=== PATIENT | male | born 1955 | race Hispanic/Latino ===

== ENCOUNTER 2024-06-06 18:23 | Emergency (ER) | payer OTHER, SELFPAY ==
[2024-06-06 18:39] VITALS: BP 146/80
--- NOTE | 2024-06-06 19:27 | ED.GENMED ---
History of Present Illness
General
Chief Complaint: Wound Check/Suture Removal
Source: patient
Time Seen by Provider: 06/06/24 19:07
History of Present Illness
History of Present Illness:
69-year-old male presenting the emergency department for evaluation of suture removals from the right frontoparietal scalp. He states that he had the sutures placed at [place] 10 days ago. He states he was not happy with his care there so did not
wish to go back to their emergency department and he was unable to get in touch with his primary care provider to have the sutures removed so decided to come to this emergency department instead.
Past History
Past History
ED Past Medical History: HTN, Hypercholesterolemia and NIDDM
ED Past Surgical History: Orthopedic and Other
Social History
Tobacco: Non-smoker
Alcohol: Occasional
Drug: None
Personal:
Living: with family
Review of Systems
Review of Systems
All Other Systems: ROS reviewed and negative except as documented in HPI and ROS
Phy Exam
Physical Exam
Physical Exam:
GENERAL: Alert , in no apparent distress
EYE: conjunctiva clear
Head: Normocephalic atraumatic
NECK: Supple,
ENT: mmm.
LUNGS: no acute respiratory distress
NEUROLOGICAL: Alert and oriented
SKIN: Warm and dry, curvilinear laceration is somewhat healed with large scab formation at front portion of the healing wound. Small dehiscence of this wound along the anterior portion but no active bleeding
MUSCULOSKELETAL: well perfused.
PSYCH: Normal and appropriate interaction.
Scores
Heart Failure Risk
Heart Failure Risk Score: Not Applicable
Heart Score for Chest Pain Patients
STEMI patient?: Not applicable
Withdrawal Assessment of Alcohol
Withdrawal Assessment Completed?: Not applicable
Course
Vital Signs
Initial and Last Documented VS:
Initial Vital Signs
Temp Pulse Resp BP Pulse Ox
98.4 F 71 16 146/80 98
06/06/24 18:39 06/06/24 18:39 06/06/24 18:39 06/06/24 18:39 06/06/24 18:39
Last Documented Vital Signs
Temp Pulse Resp BP Pulse Ox
98.4 F 66 16 194/92 99
06/06/24 18:39 06/06/24 19:40 06/06/24 19:40 06/06/24 19:40 06/06/24 19:40
MDM/Problems Addressed
MDM/Problems Addressed:
69-year-old male presenting the emergency department for evaluation of suture removals. The wound is slightly dehisced at the anterior portion however given the sutures have been in place for 10 days and there was large scab formation over this I
did remove all sutures. Advised patient on continued wound care. No signs of infection. He is stable for discharge home and outpatient follow-up with primary care provider.
*Pulse Oximetry
Patient hypoxic: no
*Critical Care Note
Total Time (30-74mins, 75-104mins- exclusive of procedures): Not Applicable
ED Attending Note
-
Portions of this chart may have been created with voice recognition software.� Occasional wrong word or��sound alike� substitutions may have occurred due to the inherent limitations of voice recognition software.
Discharge Plan
Departure
Patient Disposition: Home (Routine Discharge)
Date of Disposition: 06/06/24
Time of Disposition: 19:27
Patient with high blood pressure during this ER visit?: Yes
Discharge Problem:
Encounter for removal of sutures
Instructions: Stitches Removal
Referrals:
Isael Post MD [Family Provider] -
Interventions
Interventions:
*Risk Screen - Suicide Last Done: 06/06/24 19:40
*General Assessment Last Done: 06/06/24 19:10
*Neglect/Abuse Screening Last Done: 06/06/24 19:10
ED- Fall Risk Assessment Last Done: 06/06/24 19:10
*ED COVID-19 Vaccine History Last Done: 06/06/24 19:10
*Nursing Disposition Last Done: 06/06/24 19:40
ED-Skin Assessment Last Done: 06/06/24 19:10
Discharge Date and Time
Discharge Date/Time: 06/06/24 19:40
Print Language: PERUVIAN
[2024-06-06 19:40] VITALS: BP 194/92
== END 2024-06-06 19:40 | disposition home or self-care (01) ==
LOC: EMR 18:23
PROVIDERS: EMERGENCY PHYSICIAN Emergency Medicine; FAMILY PHYSICIAN Internal Medicine
DX: Z48.02 Encounter for removal of sutures (principal); I10 Essential (primary) hypertension; E78.00 Pure hypercholesterolemia, unspecified; E11.9 Type 2 diabetes mellitus without complications
CPT/HCPCS: 99281

== ENCOUNTER 2024-09-01 17:27 | Emergency (ER) | payer OTHER, SELFPAY ==
[2024-09-01 17:29] VITALS: BP 145/85
--- NOTE | 2024-09-01 18:16 | ED.GENMED ---
History of Present Illness
General
Chief Complaint: Bowel Problem
Source: patient
Time Seen by Provider: 09/01/24 17:59
History of Present Illness
History of Present Illness:
69yoM with a history of hypertension, hyperlipidemia, and type 2 diabetes presenting for evaluation of constipation x 1 week. Patient states he has been unable to have a bowel movement for the past week or so. He started to have significant rectal
discomfort today so he took an [id number] laxative without improvement. He is now having difficulty urinating today and has not urinated since this morning. Patient is presenting with significant rectal and lower abdominal discomfort. He
denies any vomiting or fevers.
Past History
Past History
ED Past Medical History: HTN, Hypercholesterolemia and NIDDM
ED Past Surgical History: Orthopedic and Other
Social History
Tobacco: Non-smoker
Alcohol: Occasional
Drug: None
Personal:
Living: with family
Phy Exam
Physical Exam
Physical Exam:
Patient pacing around room in discomfort
General Physical Exam
General Presentation: moderate distress
General Skin: warm and dry
General Habitus: normal
General Mental: alert
ENT Exam
ENT Exam: normocephalic
Pulmonary Exam
Pulmonary Exam: no respiratory distress
Gastrointestinal Exam
Gastrointestinal Exam: soft, non distended and other (Mild tenderness in suprapubic region. )
Rectal Exam: hard stool
[place] Coma Scale
Eye Opening: Spontaneous
Verbal Response: Oriented
Motor Response: Obeys Commands
GCS Total Score: 15
Skin Exam
Skin Exam: normal color and warm/dry
Course
Orders/Labs/Results
Orders:
Orders
09/01/24 18:00
Bladder Scan- Treatment ONCE
Vital Signs
Initial and Last Documented VS:
Initial Vital Signs
Temp Pulse Resp BP Pulse Ox
97.7 F 85 16 145/85 98
09/01/24 17:29 09/01/24 17:29 09/01/24 17:29 09/01/24 17:29 09/01/24 17:29
Last Documented Vital Signs
Temp Pulse Resp BP Pulse Ox
97.7 F 85 16 145/85 98
09/01/24 17:29 09/01/24 17:29 09/01/24 17:29 09/01/24 17:29 09/01/24 17:29
MDM/Problems Addressed
Differential Diagnosis Includes:
69yoM here with constipation x 1 week. Now with difficulty urinating starting today. Patient is pacing around room on exam in discomfort. VSS. Abdominal exam is benign. Hard stool palpated on rectal exam. Differential diagnosis includes but is not
limited to: Fecal impaction, constipation, urinary retention
Bladder scan 300 cc. Manual disimpaction was performed at bedside and several pieces. After disimpaction, patient was able to have a very large bowel movement. He was also able to urinate spontaneously. Patient is asymptomatic on reassessment
and is requesting discharge. A milk of molasses enema was initially ordered which patient declines. Supportive care discussed including increased fluid/fiber intake. Advised MiraLAX twice daily until bowel movements regulate. He was advised to
follow-up with his PCP and ED return precautions discussed. He was discharged in stable condition.
*Critical Care Note
Total Time (30-74mins, 75-104mins- exclusive of procedures): Not Applicable
ED Attending Note
-
Portions of this chart may have been created with voice recognition software.� Occasional wrong word or��sound alike� substitutions may have occurred due to the inherent limitations of voice recognition software.
Discharge Plan
Departure
Patient Disposition: Home (Routine Discharge)
Date of Disposition: 09/01/24
Time of Disposition: 18:30
Patient with high blood pressure during this ER visit?: Yes
Discharge Problem:
Fecal impaction
Instructions: Fecal Impaction (DC)
Activity Restrictions/Additional Instructions:
Take Miralax twice a day until bowel movements regulate. Increase your fluid and fiber intake.
Please follow-up with your family doctor. Return to the ER with any worsening symptoms.
Interventions
Interventions:
*Risk Screen - Suicide Last Done: 09/01/24 17:29
*General Assessment Last Done: 09/01/24 18:05
*Neglect/Abuse Screening Last Done: 09/01/24 17:29
ZC-Qwkvwi-Vafktgbcgb Assessment Last Done: 09/01/24 18:05
Discharge Date and Time
Print Language: POLISH
== END 2024-09-01 19:51 | disposition home or self-care (01) ==
LOC: EMR 17:27
PROVIDERS: EMERGENCY PHYSICIAN Emergency Medicine; FAMILY PHYSICIAN Internal Medicine
DX: K56.41 Fecal impaction (principal); I10 Essential (primary) hypertension; E78.00 Pure hypercholesterolemia, unspecified; E11.9 Type 2 diabetes mellitus without complications
CPT/HCPCS: 99283; 51798

== ENCOUNTER → 2024-09-02 07:11 | Outpatient (REF) | payer OTHER, SELFPAY | LOC: MRI 3T 07:11 | PROVIDERS: ATTENDING PHYSICIAN Physical Medicine & Rehabilitation | DX: M54.50 Low back pain, unspecified (principal) | CPT/HCPCS: 72148 ==